=== PATIENT | male | born 1980 | race Caucasian/White ===

== ENCOUNTER 2016-09-20 15:28 | Emergency (ER) | payer MEDICARE, OTHER ==
[2016-09-20] MEDS ORDERED: KETOROLAC TROMETHAMINE 60 MG/2 ML VIAL IM ONE (15:40)
[2016-09-20] MEDS ORDERED: DIAZEPAM 5 MG/ML DISP.SYRIN IM ONE (15:40)
--- NOTE | 2016-09-20 16:36 | ED Physician Documentation ---
Fall - HISTORIAN Historian: patient - HPI Stated Complaint: neck pain Chief Complaint: Fall Onset: yesterday Where: home Context: tripped, lost balance Associated Symptoms:: no loss of consciousness Location of Pain/Injury: head, neck Further Comments: yes (36 year old male patient presents with complaint of neck and head pain after falling and hitting the back of his head and neck on the side of the tub. Denies LOC. Has not taken any OTC medications.) - ROS CONST: no problems NEURO: denies: dizziness, anxiety, depression, other MS/SKIN/LYMPH: denies: weakness, numbness, neck pain, back pain, ankle swelling , leg swelling, rash, other EYES/ENT: denies: none, problems with vision, nasal drainage, other GI/: denies: problems urinating, nausea, vomiting, other - PAST HX Past History: other (seizures ) Allergies/Adverse Reactions: Allergies Allergy/AdvReac Type Severity Reaction Status Date / Time No Known Allergies Allergy Verified 09/20/16 16:05 - SOCIAL HX Smoking History: non-smoker - FAMILY HX Family History: denies: none - VITAL SIGNS Vital Signs: Vital Signs Temp Pulse Resp BP Pulse Ox 98.4 F 78 16 127/86 96 09/20/16 15:30 09/20/16 15:30 09/20/16 15:30 09/20/16 15:30 09/20/16 15:30 - REVIEWED ASSESSMENTS Nursing Assessment Reviewed: Yes Vitals Reviewed: Yes ED Results Lab/Radiology - Radiology Radiology Impressions: CT cervical spine Date of examination: 20 September 2016 CLINICAL HISTORY: FALL ONTO CAST IRON TUB, NECK PAIN (Hx) / NECK PAIN AFTER FALL (DICOM Hx) TECHNIQUE: 3 mm contiguous axial images of the cervical spine with sagittal and coronal reconstructions. FINDINGS: The cervical spine alignment is normal. The cervical vertebral bodies are of normal height. There is multilevel disc space narrowing with anterior and posterior marginal spurs. The cervical vertebral bodies and posterior elements are intact. The spinal canal diameter is normal. There is no evidence of acute fracture or subluxation. The facets are in proper relationship bilaterally. There is degenerative arthritis of the joints. The craniocervical and cervicothoracic junctions are normal. IMPRESSION: No evidence of acute cervical spine fracture or subluxation Cervical spondylosis - Orders Orders: ED Orders Category Date Time Status CT C-SPINE W/O CONTRAST Stat Exams 09/20/16 Ordered Diazepam [Valium] Med 09/20/16 15:40 Discontinued 7.5 mg IM NOW ONE Ketorolac Tromethamine [Toradol] Med 09/20/16 15:40 Discontinued 60 mg IM NOW ONE Fall Physical Exam - Physical Exam General Appearance: mild distress Head: no swelling, no obvious injury Neck: decreased ROM, pain with neck movement (muscle spasm) Eye: TESS, EOMI, lids & conjunct. nml Resp/CVS: chest non-tender, no ecchymosis, breath sounds nml, no resp. distress , heart sounds nml Abdomen: soft, no organomegaly, normal bowel sounds, no abdominal bruit, no distension Neuro: oriented x3, CN's nml as tested, sensation nml, motor nml, mood/affect nml, technology integration specialist nml, reflexes nml, technology integration specialist symmetrical Skin: color nml, no rash, nml palp., dry Extremities: atraumatic, pelvis stable, hips non-tender, no pedal edema, nml ROM , nml color/temp - Martir Coma Score Eyes Open: Spontaneous Speech: Oriented Motor: Obeys Commands Discharge Clincal Impression: Cervical muscle strain Qualifiers: Encounter type: initial encounter Qualified Code(s): S16.1XXA - Strain of muscle, fascia and tendon at neck level, initial encounter Fall at home Qualifiers: Encounter type: initial encounter Qualified Code(s): W19.XXXA - Unspecified fall, initial encounter; Y92.099 - Unspecified place in other non-institutional residence as the place of occurrence of the external cause Referrals: Ayad Estrada MD [Primary Care Provider] - 2 Days Additional Instructions: Ice Rest Elevation Do not take ibuprofen, aleve, naproxen or any other NSAID while you are on toradol. You may want to try massage, biofreeze, rahul franklin or aspercream or see a chiropractor to relieve your pain Condition: Stable Disposition: 01 HOME, SELF-CARE Decision to Admit: NO Decision Time: 17:21
--- NOTE | 2016-09-20 17:28 | Diagnostic Imaging Report ---
[facility] [address] [facility] [address] [place] [address]. [id number] Report Submission Date: Sep 20, 2016 4:40:21 PM [employer] Patient Study Name: MARY NAIK Date: Sep 20, 2016 4:10:07 PM [employer] Modality Type: CT\SR Gender: M Description: CT C-SPINE W/O CONTRAS : 78 Institution: [facility] Physician: VALERIE ANDREWS CT cervical spine Date of examination: 20 September 2016 CLINICAL HISTORY: FALL ONTO CAST IRON TUB, NECK PAIN (Hx) / NECK PAIN AFTER FALL (DICOM Hx) TECHNIQUE: 3 mm contiguous axial images of the cervical spine with sagittal and coronal reconstructions. FINDINGS: The cervical spine alignment is normal. The cervical vertebral bodies are of normal height. There is multilevel disc space narrowing with anterior and posterior marginal spurs. The cervical vertebral bodies and posterior elements are intact. The spinal canal diameter is normal. There is no evidence of acute fracture or subluxation. The facets are in proper relationship bilaterally. There is degenerative arthritis of the joints. The craniocervical and cervicothoracic junctions are normal. IMPRESSION: No evidence of acute cervical spine fracture or subluxation Cervical spondylosis Electronically signed on Sep 20, 2016 4:40:21 PM [employer] by: Jose JEREZ
[2016-09-20 18:35] VITALS: BP 124/72
== END 2016-09-20 17:30 | disposition home or self-care (01) ==
LOC: ED 15:28
DX: S16.1XXA Strain of muscle, fascia and tendon at neck level, initial encounter (principal); W19.XXXA Unspecified fall, initial encounter; Y92.099 Unspecified place in other non-institutional residence as the place of occurrence of the external cause; Y99.9 Unspecified external cause status
CPT/HCPCS: 72125; J1885; J3360; 96372; 99283

== ENCOUNTER 2016-12-02 18:39 | Emergency (ER) | payer MEDICARE, OTHER ==
[2016-12-02] MEDS ORDERED: Lidocaine 1% 5ml(IM or SUTURE)(PAIN CLINIC) IJ ONE (19:52)
--- NOTE | 2016-12-02 19:52 | ED Physician Documentation ---
General Adult - HISTORIAN Historian: patient - HPI Stated Complaint: laceration Chief Complaint: Hand Injury Onset: hours (1829) Timing: still present Further Comments: yes (was using a timber timber draw shaver, slipped on cut thumb) - ROS CONST: no problems. denies: fever CVS/RESP: denies: chest pain, shortness of breath - PAST HX Past History: other (epilepisy, last seizure several years ago) Surgeries/Procedures: none Allergies/Adverse Reactions: Allergies Allergy/AdvReac Type Severity Reaction Status Date / Time No Known Allergies Allergy Verified 12/02/16 18:49 - SOCIAL HX Smoking History: chew (1 pack per week) Alcohol Use: none Drug Use: none - FAMILY HX Family History: No - VITAL SIGNS Vital Signs: Vital Signs Temp Pulse Resp BP Pulse Ox 98.3 F 82 18 126/77 96 12/02/16 18:40 12/02/16 18:40 12/02/16 18:40 12/02/16 18:40 12/02/16 18:40 - REVIEWED ASSESSMENTS Nursing Assessment Reviewed: Yes Vitals Reviewed: Yes Procedures Wound Location: upper extremity, other (right lateral thumb) Wound's Depth, Shape: linear Wound Explored: clean Irrigated w/ Saline (ccs): 30 Betadine Prep?: No (chlorahex) Anesthesia: 1% Lidocaine Volume of Anesthetic: 1.8ml Suture Size/Type: 5:0 Number of Sutures: 5 Sterile Dressing Applied?: Yes Splint Applied?: No General Adult Physical Exam - PHYSICAL EXAM GENERAL APPEARANCE: no distress RESPIRATORY: no resp distress, chest non-tender, breath sounds normal. No: wheezes, rales, rhonchi CVS: reg rate & rhythm, heart sounds normal, equal pulses, no murmur SKIN: other (laceration right thumb) EXTREMITIES: non-tender NEURO: oriented X3, motor nml, sensation nml, mood/affect nml, cognition normal Discharge Clincal Impression: Laceration of hand Referrals: Aayd Estrada MD [Primary Care Provider] - 2 Days Additional Instructions: Have sutures removed in 7-10 days. Watch for sign of infection. Condition: Stable Disposition: 01 HOME, SELF-CARE Decision to Admit: NO Date of Decison to Admit: 12/02/16 Decision Time: 20:16
[2016-12-02] MEDS ORDERED: Lidocaine 1% 5ml(IM or SUTURE)(PAIN CLINIC) ONE (19:54)
[2016-12-02 21:16] VITALS: BP 110/72
== END 2016-12-02 20:24 | disposition home or self-care (01) ==
LOC: ED 18:39
DX: S61.011A Laceration without foreign body of right thumb without damage to nail, initial encounter (principal); W27.8XXA Contact with other nonpowered hand tool, initial encounter; Y93.9 Activity, unspecified; Y99.9 Unspecified external cause status
CPT/HCPCS: 12002; 99283; 99284

== ENCOUNTER 2017-02-12 11:31 | Outpatient (CLI) | payer MEDICARE, OTHER | END 2017-02-12 13:02 | LOC: LAB 11:31 | PROVIDERS: ATTEND Family Medicine | DX: I67.7 Cerebral arteritis, not elsewhere classified (principal) | CPT/HCPCS: 36415; 85651; 86038 ==

== ENCOUNTER 2019-02-26 16:30 | Outpatient (CLI) | payer MEDICARE, OTHER ==
[2019-02-26 16:48] LABS: BASOPHILS % 0.4 % (0.0-1.5); NEUTROPHILS # 4.9 # k/uL (1.4-7.7)
[2019-02-26 17:04] LABS: eGFR (Non-African) 47
== END 2019-02-26 16:32 ==
LOC: LAB 16:30
PROVIDERS: ATTEND Family Medicine
DX: Z79.899 Other long term (current) drug therapy (principal)
CPT/HCPCS: 36415; 80053; 80177; 85025

== ENCOUNTER 2019-06-04 11:05 | Outpatient (CLI) | payer MEDICARE, OTHER ==
[2019-06-12 10:24] LABS: eGFR (Non-African) > 60
--- NOTE | 2019-07-01 10:06 | Diagnostic Imaging Report ---
JO HOPKINS [facility] [address] [facility] [address] Report Submission Date: Jun 04, 2019 12:04:02 PM CDT Patient Study Name: MARY NAIK Date: Jun 04, 2019 11:08:24 AM CDT Modality Type: DX Gender: M Description: ABD COMPLETE : 78 Institution: [facility] Physician: JO HOPKINS Abdominal obstructive series Indication: Abdominal pain. Kidney stones Findings: Supine and upright views of the abdomendemonstrate large staghorn type calculi in both kidneys. The 1 on the right measures at least 6.9 x 5.4 cm in its largest conglomerate. In the upper pole of the left kidney there is a 7.1 x 5.1 cm staghorn calculus. Other smaller calculi mid lower pole left kidney are present with one measuring up a 2.9 cm. There is no bowel obstruction or free intraperitoneal air. Impression: Bilateral staghorn type calculi Electronically signed on Jun 04, 2019 12:04:02 PM CDT by: Osman JEREZ
== END 2019-06-04 11:20 | disposition home or self-care (01) ==
LOC: LAB 11:05
PROVIDERS: ATTEND Family Medicine
DX: Z51.81 Encounter for therapeutic drug level monitoring (principal); R10.13 Epigastric pain
CPT/HCPCS: 36415; 74022; 80053; 83690

== ENCOUNTER 2019-06-12 08:14 | Outpatient (CLI) | payer MEDICARE, OTHER ==
--- NOTE | 2019-06-12 10:38 | Diagnostic Imaging Report ---
PATIENT MR#: [id number] PATIENT PATIENT NAME: MARY NAIK DATE OF : 1980 REFERRING PHYSICIAN: Anthony Zaragoza EXAM DATE: 06/12/2019 ACCESSION NUMBER: [id number] EXAM DESCRIPTION: CT ABD PELVIS W/O CO CT Abdomen/pelvis without contrast History: Bilateral staghorn calculus Comparison: KUB dated June 04, 2019 Calcified granuloma measuring 1.4 cm is noted at the right lung base Left basilar atelectasis. No free intraperitoneal air. No acute osseous pathology The liver, gallbladder spleen, adrenal glands are within normal limits. Pancreas within normal limits . Bilateral renal cortical thinning is present with moderate to severe hydronephrosis. There are large bilateral stagho rn calculi, in addition nonobstructing calculi are seen at bilateral renal lower poles Fat stranding is present around the left kidney and ureter Right proximal ureter is dilated proximally but tapers to normal caliber distally. High density mater ial is noted within the right ureter. Left pararenal fat stranding is present. Moderate to severe left hydronephrosis, there is a 3 mm calc ulus in the proximal left ureter. Left groin hernia contains fat Prostatomegaly and calcification Mild rectal wall thickening, mild wall thickening of the terminal ileum is also noted. Normal appendi x Small hiatal hernia. Several prominent lymph nodes are seen in the lesser sac and in the paraaortic r egion Impression: 1. Left obstructive uropathy. Fat stranding around the left kidney with small amount of fluid in the left anterior pararenal space. Large staghorn calculus in the left kidney extending to the renal pelvis with conglo merate measurement 4.2 cm transverse x 9.7 cm craniocaudal. Left hydroureter. There is a 3 mm calculus in the proximal l eft ureter 2. Extensive bilateral renal calculi, both kidneys demonstrate moderate to severe hydronephrosis with cortical thinning. Right renal staghorn calculus extends to the renal pelvis measures 5.5 cm craniocaudal x 4.3 cm trans verse. In addition nonobstructing calculi are seen in both kidneys. High density material within the right ureter may be due to sludge. There is right ureter wall thickening and adjacent fat stranding, findings suggest possible UTI 3. Wall thickening of the terminal ileum is noted, may be related to enteritis. Other differential di agnosis would include IBD in the appropriate setting. Normal appendix. No abscess 4. Prostatic calcification. Prostatomegaly indents urinary bladder. Small hiatal hernia. Fat containi ng left groin hernia Read by: Dr. Bibi Mcclelland Transcribed by: Transcribed Date: Electronically signed by: Dr. Bibi Mcclelland Date signed: 06/12/2019 10:37:35 AM
== END 2019-06-12 08:25 ==
LOC: RAD 08:14
PROVIDERS: ATTEND Urology
DX: N20.0 Calculus of kidney (principal)
CPT/HCPCS: 74176

== ENCOUNTER 2019-07-14 11:23 | Outpatient (CLI) | payer MEDICARE, OTHER ==
--- NOTE | 2019-07-14 16:53 | Diagnostic Imaging Report ---
PATIENT MR#: [id number] PATIENT PATIENT NAME: MARY NAIK DATE OF : 1980 REFERRING PHYSICIAN: Ayad Estrada EXAM DATE: 07/14/2019 ACCESSION NUMBER: [id number] EXAM DESCRIPTION: CHEST 2VIEW HISTORY: CHEST PAIN X 1-2 MONTHS, PRECORDIAL CHEST PAIN/DYSPNEA. COMPARISON: None provided. CHEST RADIOGRAPH, FRONTAL AND LATERAL: Upper mediastinum: Not widened. Heart: No cardiomegaly. Lungs: 8 mm nodule superimposed over the right diaphragm on AP view likely represents nipple shadow g iven the absence of visualization on lateral view. No lobar infiltrate, pulmonary edema, pneumothorax or significant effu francis. Skeleton: No acute findings. IMPRESSION: No acute thoracic process. Probable right nipple shadow. This may be confirmed with bilat eral shallow oblique radiographs with nipple markers. Read by: Dr. Charli Haley Transcribed by: Charli Haley Transcribed Date: 07/14/2019 4:53:06 PM Electronically signed by: Dr. Charli Haley Date signed: 07/14/2019 4:53:06 PM
== END 2019-07-14 11:33 ==
LOC: RT 11:23
PROVIDERS: ATTEND Family Medicine
DX: R07.2 Precordial pain (principal)
CPT/HCPCS: 36415; 71046; 84484; 93005

== ENCOUNTER 2019-08-26 05:48 | Emergency (ER) | payer MEDICARE, OTHER ==
[2019-08-26] MEDS ORDERED: ONDANSETRON HCL 4 MG TAB.RAPDIS ONE (05:51)
--- NOTE | 2019-08-26 06:06 | ED Physician Documentation ---
General Adult - HISTORIAN Historian: patient - HPI Stated Complaint: nausea today and hiccups Chief Complaint: Nausea,Vomiting,Diarrhea Onset: days ago (2) Timing: still present Further Comments: yes (He states he is here due to nausea from hiccups . He has not had any vomiting. No fever .He was in the hospital at [place] last week and they did encouage him to go to [place] he did stop here due to cost. No fever . He has had two gallons of tea in the last two days in order to stop the hiccups and this has not helped . He mainly would like something for sleep) - ROS CONST: recent illness (he was in the hospital for a kidney stone ) - PAST HX Past History: other (seizures ) Immunizations: UTD Allergies/Adverse Reactions: Allergies Allergy/AdvReac Type Severity Reaction Status Date / Time No Known Drug Allergies Allergy Verified 08/26/19 06:14 - SOCIAL HX Smoking History: non-smoker Alcohol Use: none Drug Use: none - FAMILY HX Family History: No - VITAL SIGNS Vital Signs: Vital Signs Temp Pulse Resp BP Pulse Ox 110/72 12/02/16 21:12 - REVIEWED ASSESSMENTS Nursing Assessment Reviewed: Yes Vitals Reviewed: Yes ED Results Lab/Radiology - Orders Orders: ED Orders Category Date Time Status Ondansetron HCl Rapdis [Zofran Odt] Med 08/26/19 05:51 Discontinued 4 mg .ROUTE .STK-MED ONE General Adult Physical Exam - PHYSICAL EXAM GENERAL APPEARANCE: no distress EENT: eye inspection normal, no signs of dehydration, other (he is having hiccups ) RESPIRATORY: no resp distress, chest non-tender, breath sounds normal CVS: reg rate & rhythm ABDOMEN: soft, normal bowel sounds SKIN: warm/dry EXTREMITIES: non-tender NEURO: oriented X3 Discharge Clincal Impression: Intractable hiccups Referrals: Ayad Estrada MD [Primary Care Provider] - 2 Days Comments: 1. Baclofen offered and he declined states he is just going to [place] Condition: Stable Disposition: 01 HOME, SELF-CARE Decision to Admit: NO Date of Decison to Admit: 08/26/19 Decision Time: 06:20
[2019-08-26 06:14] VITALS: BP 121/90
[2019-08-26] MEDS ORDERED: BACLOFEN 10 MG TABLET PO ONE (06:17)
[2019-08-26] MEDS ORDERED: ONDANSETRON HCL 4 MG TAB.RAPDIS PO ONE (06:25)
== END 2019-08-26 06:19 | disposition home or self-care (01) ==
LOC: ED 05:48
DX: R06.6 Hiccough (principal)
CPT/HCPCS: 99282; 99283; A9270